=== PATIENT | male | born 1975 | race African-American/Black ===

== ENCOUNTER 2018-01-10 17:58 | Emergency (ER) | payer BC ==
[~2018-01-10 17:58] MED LIST: Sodium Chloride 0.9% 1,000 ML BAG ONE
[2018-01-10] MEDS ORDERED: Ondansetron HCl/PF 4 MG/2 ML Vial ONE (18:46)
[2018-01-10] MEDS ORDERED: Famotidine In NaCl 20 mg/50 ml Premix Bag ONE (18:46)
[2018-01-10 19:02] LABS: Anion Gap 14 mmol/L (10-20); BUN (Urea Nitrogen) 13 mg/dL (8.9-20.6); Calc. Creatinine Clearance 0 mL/min (70-130); Calcium 8.9 mg/dL (7.8-10.44); Carbon Dioxide 27 mmol/L (22-29); Chloride 104 mmol/L (98-107); Estimated GFR-MDRD Greater than 90; Glucose 103 mg/dL (70-105); Sodium 142 mmol/L (136-145)
[2018-01-10 19:17] LABS: Band 4 % (5-11); Hemoglobin 13.8 g/dL (14.0-18.0); Lymphocytes 18 % (21-51); MDiff Complete? YES; Mean Corpuscular HGB CONC 33.4 g/dL (32.0-36.0); Mean Corpuscular Hemoglobin 26.8 pg (27.0-31.0); Mean Corpuscular Volume 80.3 fl (80.0-94.0); Mean Platelet Volume 7.5 fL (7.4-10.4); Monocytes 8 % (0-10); Neutrophil 70 % (42-75); PLT Morphology Comment Appears Adequate; Platelet Count 194 thou/uL (130-400); RBC Distribution Width 11.8 % (11.5-14.5); Red Blood Cell (RBC) Count 5.17 mill/uL (4.70-6.10); White Blood Cell (WBC) Count 6.3 thou/uL (4.8-10.8)
[2018-01-10] MEDS ORDERED: Potassium Chloride 20 MEQ TAB ONE (19:46)
== END 2018-01-10 20:19 | disposition home or self-care (01) ==
LOC: MADERS 17:58
DX: K21.0 Gastro-esophageal reflux disease with esophagitis (principal); I10 Essential (primary) hypertension; Z79.899 Other long term (current) drug therapy
CPT/HCPCS: 36415; 80048; 82150; 83605; 85025; 96361; 96365; 96375; J2405; J7050

== ENCOUNTER 2020-02-06 22:29 | Emergency (ER) | payer BC, SELFPAY ==
[2020-02-06] MEDS ORDERED: HYDROcodone/Acetaminophen 10/325 mg Tablet ONE (23:08)
[2020-02-06] MEDS ORDERED: Acetaminophen 325 MG TAB ONE (23:09)
[2020-02-06] MEDS ORDERED: Ketorolac Tromethamine 60 MG/2 ML VIAL ONE (23:09)
[2020-02-06] MEDS ORDERED: Dexamethasone 4 MG TAB ONE (23:09)
[2020-02-06] MEDS ORDERED: Ondansetron ODT 4 MG TAB ONE (23:22)
== END 2020-02-06 23:41 | disposition home or self-care (01) ==
LOC: MADERS 22:29
DX: S83.91XA Sprain of unspecified site of right knee, initial encounter (principal); S86.911A Strain of unspecified muscle(s) and tendon(s) at lower leg level, right leg, initial encounter; I10 Essential (primary) hypertension; X50.9XXA Other and unspecified overexertion or strenuous movements or postures, initial encounter
CPT/HCPCS: 96372; 99283; J1885; J8540; Q0162

== ENCOUNTER 2021-02-10 06:17 | Emergency (ER) | payer SELFPAY ==
[2021-02-10 07:12] LABS: #Basophils 0.1 thou/uL (0.0-0.2); #Eosinphils 0.2 thou/uL (0.0-0.7); #Lymphocytes 1.7 thou/uL (1.20-3.40); #Monocytes 0.6 thou/uL (0.11-0.59); #Neutrophils 4.1 thou/uL (1.40-6.50); %Basophils 1.7 % (0.0-1.0); %Eosinophils 2.6 % (0.0-10.0); %Lymphocytes 25.8 % (21.0-51.0); %Neutrophils 60.9 % (42.0-75.0); Hemoglobin 13.4 g/dL (14.0-18.0); Mean Corpuscular HGB CONC 32.6 g/dL (32.0-36.0); Mean Corpuscular Hemoglobin 27.4 pg (27.0-31.0); Mean Platelet Volume 8.5 fL (7.4-10.4); Platelet Count 269 thou/uL (130-400); RBC Distribution Width 11.7 % (11.5-14.5); Red Blood Cell (RBC) Count 4.88 mill/uL (4.70-6.10); White Blood Cell (WBC) Count 6.7 thou/uL (4.8-10.8)
[2021-02-10 07:15] LABS: INR-International Normal Ratio 0.9; PTT 28.5 sec (22.9-36.1); Prothrombin Time 12.7 sec (12.0-14.7)
[2021-02-10 07:16] LABS: D-Dimer Test 0.48 *mcg/mL (0.27-0.43)
[2021-02-10 07:24] LABS: ALT (SGPT) 20 U/L (8-55); AST (SGOT) 19 U/L (5-34); Alkaline Phosphatase 95 U/L (40-110); Anion Gap 12 mmol/L (10-20); BUN (Urea Nitrogen) 12 mg/dL (8.9-20.6); Bilirubin, Total 0.5 mg/dL (0.2-1.2); CK (CPK) 270 U/L (30-200); Calc. Creatinine Clearance 0 mL/min (70-130); Calcium 8.8 mg/dL (7.8-10.44); Carbon Dioxide 24 mmol/L (22-29); Chloride 105 mmol/L (98-107); Glucose 116 mg/dL (70-105); Potassium 3.4 mmol/L (3.5-5.1); Sodium 138 mmol/L (136-145)
[2021-02-10 07:38] LABS: CKMB 2.1 ng/mL (0-6.6)
[2021-02-10] MEDS ORDERED: Potassium Chloride 20 MEQ TAB ONE (07:54)
[2021-02-10] MEDS ORDERED: Sodium Chloride 0.9% 1,000 ML ONE (07:54)
== END 2021-02-10 08:20 | disposition home or self-care (01) ==
LOC: MADERS 06:17
DX: E87.6 Hypokalemia (principal); E86.0 Dehydration; R25.2 Cramp and spasm; M79.651 Pain in right thigh; R60.0 Localized edema; I10 Essential (primary) hypertension; R26.9 Unspecified abnormalities of gait and mobility
CPT/HCPCS: 80053; 82550; 82553; 84484; 85025; 85379; 85610; 85730; 94760; J7050

== ENCOUNTER 2021-03-10 15:08 | Emergency (ER) | payer SELFPAY ==
[2021-03-10] MEDS ORDERED: Lidocaine 1% 20 ML MDV ONE (15:55)
[2021-03-10] MEDS ORDERED: Bacitracin 1 PK ONE (15:55)
== END 2021-03-10 17:25 | disposition home or self-care (01) ==
LOC: MADERS 15:08
DX: S61.411A Laceration without foreign body of right hand, initial encounter (principal); I10 Essential (primary) hypertension; W22.8XXA Striking against or struck by other objects, initial encounter
CPT/HCPCS: 12002

== ENCOUNTER 2022-09-06 06:11 | Emergency (ER) | payer OTHER ==
[2022-09-06] MEDS ORDERED: Ibuprofen 800 MG TAB ONE (06:36)
[2022-09-06] MEDS ORDERED: Acetaminophen 500 MG TAB ONE (06:36)
[2022-09-06] MEDS ORDERED: Tetracaine 0.5% PF 4 ML BOT ONE (06:36)
== END 2022-09-06 07:43 | disposition home or self-care (01) ==
LOC: MADERS 06:11
DX: R51.9 Headache, unspecified (principal); H40.059 Ocular hypertension, unspecified eye; I10 Essential (primary) hypertension; R29.700 NIHSS score 0; Z86.73 Personal history of transient ischemic attack (TIA), and cerebral infarction without residual deficits; Z79.82 Long term (current) use of aspirin; Z79.899 Other long term (current) drug therapy
CPT/HCPCS: 99283

== ENCOUNTER 2023-09-01 10:51 | Emergency (ER) | payer OTHER, SELFPAY | END 2023-09-01 11:51 | disposition home or self-care (01) | LOC: MADERS 10:51 | DX: M54.50 Low back pain, unspecified (principal); I10 Essential (primary) hypertension; Z79.899 Other long term (current) drug therapy; Z79.82 Long term (current) use of aspirin; Z86.73 Personal history of transient ischemic attack (TIA), and cerebral infarction without residual deficits | CPT/HCPCS: 99283 ==

== ENCOUNTER 2024-04-25 06:41 | Emergency (ER) | payer SELFPAY ==
[2024-04-25] MEDS ORDERED: Ibuprofen 800 MG TAB ONE (07:01)
== END 2024-04-25 07:29 | disposition home or self-care (01) ==
LOC: MADERS 06:41
DX: M25.561 Pain in right knee (principal); I10 Essential (primary) hypertension; X50.0XXA Overexertion from strenuous movement or load, initial encounter; Y93.89 Activity, other specified; Z55.6 Problems related to health literacy; Z86.73 Personal history of transient ischemic attack (TIA), and cerebral infarction without residual deficits; Z79.82 Long term (current) use of aspirin; Z79.899 Other long term (current) drug therapy
CPT/HCPCS: 99283